=== PATIENT | female | born 1975 | race Caucasian/White ===

== ENCOUNTER → 2021-01-04 | Outpatient (CLI) | payer BC ==
[~2021-01-04] MED LIST: PRENATAL VITAMI1 TA5 PO
== END ==
LOC: MC.RAD 14:21
DX: Z12.31 Encounter for screening mammogram for malignant neoplasm of breast (principal)

== ENCOUNTER → 2024-04-15 | Outpatient (CLI) | payer OTHER | LOC: MC.RAD 13:51 | DX: Z12.31 Encounter for screening mammogram for malignant neoplasm of breast (principal) ==